=== PATIENT | male | born 1960 | race Caucasian/White ===

== ENCOUNTER 2025-03-24 03:29 | Inpatient (IN) | payer MEDICAID ==
[~2025-03-24] VITALS: Ht 172.7 cm; Wt 79.8 kg
[2025-03-24] VITALS (14 sets, daily range): BP systolic 124–147; BP diastolic 62–87; PULSE 62–87; RESP 13–20; TEMP 97.5–97.8; O2SAT 93–99
[2025-03-24] MEDS: HEPARIN DRIP INITAL BOLUS --- DO NOT GIVE/ORDER MC ONE (03:35)
--- NOTE | 2025-03-24 03:38 | ELECTROCARDIOGRAPH REPORT ---
[facility] Test Date: 2025-03-24 Test Time: 03:35:31 Pat Name: EVITA MUÑOZ Department: [facility]- Patient ID: [id number] Room: Gender: M Organ Recovery Coordinator: : 1960 Requested By: ISABELA DAVALOS Order Number: [id number] Reading MD: Dr. Isabela Davalos Measurements Intervals [place] Rate: 67 P: 53 SC: 141 QRS: 78 QRSD: 105 T: 69 QT: 430 QTc: 454 Interpretive Statements Sinus rhythm Repol abnrm suggests ischemia, diffuse leads Electronically Signed On 03-24-2025 4:19:[address] Isabela Davalos Please click the below link to view image of tracing.
--- NOTE | 2025-03-24 03:38 | Physician Documentation ---
History of Present Illness ~ Stated Complaint: XFER Time Seen by MD: 03:33 OK to notify your PCP?: Yes Source: patient, RN/MD, EMS, RN notes reviewed, EMS notes reviewed, old records Mode of Arrival: EMS Exam Limitations: no limitations HPI 64 year old male seen in bed 14 presents as a transfer via helicopter from [place] for complaints of of an NSTEMI. HPI from [place]: Jeffry Gan is a 64 year old male with a history of AAA, hypertension, hyperlipidemia, COPD, who presents to the ED for evaluation of the left sided abdominal pain. Patient has had pain off and on for the past week. He describes is as throbbing and pressure. He points to the upper left abdomen and lower left chest. He does occasionally feel some left arm heaviness. Today the pain is more intense and persistent and he is experienced significant amount of diaphoresis which is new for him. He denies associated headaches, shortness of breath, abdominal pain, nausea, vomiting, diarrhea, back or flank pain, peripheral edema. He denies history of cardiac problems. He is a current smoker of pack a day. XR CHEST AP PORTABLE: Impression: No acute abnormality identified. CT ABDOMEN PELVIS W IV CONTRAST: Impression: 1. No evidence of acute process in the abdomen/pelvis. 2. Mild increased size of abdominal aortic aneurysm, now 3.7 cm in diameter. Medication Reconciliation Allergies: Coded Allergies: No Known Allergies (Unverified , 03/24/25) Past Medical History Past Medical History: Coronary Artery Disease, COPD, Pneumonia Review of Systems All Other Systems at this time: Reviewed and Negative ROS As stated above in the HPI, otherwise all systems are reviewed and negative. Physical Exam Vital Signs: RN Vital Signs have been reviewed: Yes Pulse Oximetry Reflects: adequate oxygenation Physical Exam General: The patient is well developed, well nourished, nontoxic appearing and is in no acute distress. Skin: [employer], warm and dry with no rashes. HEENT: Head was normocephalic and atraumatic. Eyes - pupils equal, round, reactive to light and accommodation. Extraocular movements were intact. Conjunctivae were nonicteric. Ears - bilateral tympanic membranes were normal. The mouth and oropharynx were clear with moist mucous membranes. There were no pharyngeal exudates or erythema. Neck: Supple and nontender. There was no jugular venous distention, lymphadenopathy, thyromegaly or masses. Chest: Clear to auscultation bilaterally without wheezes, rales or rhonchi. No accessory muscle use. No dullness to percussion. Heart: Rate regular and rhythmic. S1, S2. No murmurs. Palpation of the chest wall was normal. No rubs or thrills. Abdomen: Soft, nontender and nondistended. Positive bowel sounds. No guarding or rebound. No hepatosplenomegaly or palpable masses. Extremities: No cyanosis, clubbing or edema. The patient moves all extremities. Pulses were equal and symmetric. Neurologic: Cranial nerves II-XII were intact. Sensation was intact to light touch throughout. Motor strength was 5/5 in all four extremities. Deep tendon reflexes were intact in both upper and lower extremities. Psychologic: The patient was oriented to person, place and time. The patient demonstrated appropriate judgement and insight. Progress Progress Note 0343: A message was left with the intesnsivist regarding admission. 0441: The heat treater was informed in the patients case and kindly agreed to the patients admission. Results/Orders Results/Orders Vital Signs 03/24/25 03/24/25 03/24/25 03/24/25 03:34 03:42 03:48 03:51 Temp 98.1 Pulse 69 66 Resp 15 16 18 B/P (MAP) 140/78 Pulse Ox 97 99 99 O2 Delivery Nasal Cannula* O2 Flow Rate 2.0 2 FiO2 28 Laboratory Tests Test 03/24/25 03:57 White Blood Count 7.3 Red Blood Count 4.14 L Hemoglobin 11.8 L Hematocrit 34.4 L Mean Corpuscular Volume 83.2 Mean Corpuscular Hemoglobin 28.5 Mean Corpuscular Hemoglobin Concent 34.3 Red Cell Distribution Width 14.5 Platelet Count 338 Mean Platelet Volume 7.9 Neutrophils (%) (Auto) 77.6 H Lymphocytes (%) (Auto) 9.3 L Monocytes (%) (Auto) 7.4 Eosinophils (%) (Auto) 5.1 Basophils (%) (Auto) 0.6 Neutrophils # (Auto) 5.7 Lymphocytes # (Auto) 0.7 L Monocytes # (Auto) 0.5 Eosinophils # (Auto) 0.4 Basophils # (Auto) 0.0 CBC Comment Coagulation Comments Sodium Level 132 L Potassium Level 3.9 Chloride Level 98 L Carbon Dioxide Level 28.2 Anion Gap 6 L Blood Urea Nitrogen 15 Creatinine 1.23 H Estimated GFR/1.73 m2 59 BUN/Creatinine Ratio 12.2 Glucose Level 166 H Calcium Level 8.7 Magnesium Level 2.0 Pro-B-Type Natriuretic Peptide 757 H Albumin 2.2 L Chemistry Comments EKG/XRAY/CT/US/VASC/MRI EKG : Additional Comment [facility] Test Date: 2025-03-24 Test Time: 03:35:31 Pat Name: JEFFRY GAN Department: [facility]- Patient ID: [facility]-[id number] Room: Gender: Cigar Head Puncher: : 1960 Requested By: DOMINGO DAVALOS Order Number: [id number] Reading MD: Dr. Domingo Davalos Measurements Intervals [place] Rate: 67 P: 53 VT: 141 QRS: 78 QRSD: 105 T: 69 QT: 430 QTc: 454 Interpretive Statements Sinus rhythm Repol abnrm suggests ischemia, diffuse leads Electronically Signed On 03-24-2025 4:19:[address] Domingo Davalos Please click the below link to view image of tracing. EKG Date and Time:03/24/25334 Electronically Signed by: DOMINGO DAVALOS MD Date and Time: 03/24/25418 Heart Score: Heart Score Response (Comments) Value History Highly Suspicious 2 EKG Repolarization Disturb 1 Age 45-64 1 Risk Factors 1 or 2 risk factors 1 Troponin >3 x's Normal limit 2 Total 7 Departure Disposition: ADMITTED INPATIENT Admitted to Inpatient Unit: yes, to hospitalist Impression: Primary Impression: NSTEMI (non-ST elevated myocardial infarction) Referrals: NO PRIMARY CARE PROVIDER (PCP) Critical Care Note Total Time (mins): 30 Critical Care Note The very real possibility of a deterioration of this patient's condition required the highest level of my preparedness for sudden, emergent intervention. I provided critical care services, which included medication orders, frequent reevaluations of the patient's condition and response to treatment, ordering and reviewing test results, and discussing the case with various consultants. Excludes time spent performing separately billable procedures. The critical care time associated with the care of the patient was 30 minutes. Signature Scribe Signature: Scribed for Domingo Davalos MD by Joleen Rosenbaum . 03/24/25 03:54 Attestation: The note accurately reflects work and decisions made by me.Domingo Davalos MD 03/24/25 03:37 DOMINGO DAVALOS MD Mar 24, 2025 03:38 JOLEEN MEHTA Mar 24, 2025 03:54
[2025-03-24 04:15] LABS: BASOPHILS % (AUTO) 0.6 % (0-1); EOSINOPHILS # (AUTO) 0.4 X10'3 (0-0.9); EOSINOPHILS % (AUTO) 5.1 % (0-6); HEMATOCRIT 34.4 % (42.0-52.0); HEMOGLOBIN 11.8 g/dl (14.0-17.9); LYMPHOCYTES # (AUTO) 0.7 X10'3 (1.1-4.8); LYMPHOCYTES % (AUTO) 9.3 % (21-51); MEAN CORPUSCULAR HEMOGLOBIN 28.5 PG (27.0-31.0); MEAN CORPUSCULAR HGB CONC 34.3 g/dL (33.0-36.5); MEAN CORPUSCULAR VOLUME 83.2 FL (78-98); MEAN PLATELET VOLUME 7.9 FL (7.4-10.4); MONOCYTES # (AUTO) 0.5 X10'3 (0-0.9); MONOCYTES % (AUTO) 7.4 % (2-12); NEUTROPHILS # (AUTO) 5.7 X10'3 (1.8-7.7); NEUTROPHILS % (AUTO) 77.6 % (42-75); PLATELET COUNT 338 X10'3 (140-440); RED BLOOD COUNT 4.14 X10'6 (4.70-6.10); RED CELL DISTRIBUTION WIDTH 14.5 % (11.5-14.5); WHITE BLOOD COUNT 7.3 X10'3 (4.5-11.0)
[2025-03-24 04:38] LABS: ALBUMIN 2.2 G/DL (3.4-5.0); ANION GAP 6 (8-16); BLOOD UREA NITROGEN 15 MG/DL (7-18); BUN/CREATININE RATIO 12.2 (10.0-20.0); CALCIUM 8.7 MG/DL (8.5-10.1); CHLORIDE 98 MMOL/L (99-107); CREATININE 1.23 MG/DL (0.60-1.10); GLUCOSE 166 MG/DL (70-104); POTASSIUM 3.9 MMOL/L (3.5-5.1); PRO BRAIN NATRIURETIC PEPTIDE 757 PG/ML (0-125); SODIUM 132 MMOL/L (135-145); TOTAL CARBON DIOXIDE 28.2 MMOL/L (24-32); eCRCL 59 ML/MIN; eGFR 59 ML/MIN
[2025-03-24 04:58] LABS: APTT 28 SECONDS (22-32); PROTHROMBIN TIME 10.4 SECONDS (9.0-12.0)
[2025-03-24] MEDS ORDERED: LOSA50TA64 PO (05:05)
[2025-03-24] MEDS ORDERED: heparin 10,000 units/1 ML INJ IV PRN (05:05)
[2025-03-24] MEDS ORDERED: ipratropium/albuterol 3ml nebule NEB PRN (05:10)
[2025-03-24] MEDS: heparin 25,000 UNIT/250ml bag 250 ML IV PRN (05:20)
[2025-03-24] MEDS: MESSAGE TO NURSING IV ONE (05:21)
--- NOTE | 2025-03-24 05:28 | HISTORY AND PHYSICAL ---
History of Present Illness End CC ~ History of Present Illness 64 year old male seen in bed 14 presents as a transfer via helicopter from [place] for complaints of of an NSTEMI. HPI from [place]: Jeffry Gan is a 64 year old male with a history of AAA, hypertension, hyperlipidemia, COPD, who presents to the ED for evaluation of the left sided abdominal pain. Patient has had pain off and on for the past week. He describes is as throbbing and pressure. He points to the upper left abdomen and lower left chest. He does occasionally feel some left arm heaviness. Today the pain is more intense and persistent and he is experienced significant amount of diaphoresis which is new for him. He denies associated headaches, shortness of breath, abdominal pain, nausea, vomiting, diarrhea, back or flank pain, peripheral edema. He denies history of cardiac problems. He is a current smoker of pack a day. Allergies: Coded Allergies: No Known Allergies (Unverified , 03/24/25) Home Medications Home Medications Active Reported Losartan Potassium 50 Mg Tablet 1 Tab PO DAILY Past Medical History Medical History Comment AAA, hypertension, hyperlipidemia, COPD, Tobacco Use Past Medical History: Coronary Artery Disease, COPD, Pneumonia Past Surgical History Surgical History Comment unknown Counseling Services Smoking & Tobacco Cessation: > 10 Minutes Advance Care Planning Advanced Care planning: N/A Review of Systems All Other Systems at this time: Reviewed and Negative Physical Exam Last Vital Signs recorded: Temperature: 98.1, Source: Oral, Heart Rate: 67, Respiratory Rate: 18, BP: 138/73, Pulse Oximetry: 100, Weight: 79.800 Results Diagram Lab Result Diagram: 03/24/25 0357 03/24/25 0357 Assessment/Plan Problems/Diagnosis: (1) NSTEMI (non-ST elevated myocardial infarction) Additional Plan NSTEMI Hypertension HLD AAA CKD Hyponatremia COPD Tobacco Use CKD Hyponatremia Recs -serial troponin -Heparin drip -Chest X-ray ordered, was negative at referring facility -CT Abdomen, stable AAA finding at [place] -ASA, Metoprolol, Statin -fluid restriction for low sodium, trend for now -unable to order lipid panel -Echo -Heparin drip will suffice for DVT prophylaxis Daytime team will consult cardiology Seen via HIPAA compliant audio visual platform Spent 35 minutes in care KARTIK BORJA MD Mar 24, 2025 05:28
--- NOTE | 2025-03-24 05:46 | RADIOLOGY REPORT ---
CHEST RADIOGRAPH Indication: chest pain Technique: Single frontal view of the chest was obtained COMPARISON: None FINDINGS: Lines and Tubes: None Lungs: Clear Pleura: No effusion. No pneumothorax. Cardiomediastinal contours: Unremarkable Bones: Unremarkable IMPRESSION: 1. No acute disease.
[2025-03-24] MEDS: PERFLUTREN PROTEIN-A MICROSPHR (Optison) 0.22 MG/ML 3ML VIAL IV ONE (06:14)
[2025-03-24] MEDS ORDERED: morphine 2 MG/ML inj. syringe IV PRN (08:05)
[2025-03-24] MEDS ORDERED: magnesium hydroxide 30ml (MOM) UD suspension PO PRN (08:05)
[2025-03-24] MEDS ORDERED: ondansetron/PF 4mg/2ml inj IV PRN (08:05)
[2025-03-24] MEDS ORDERED: magnesium sulf-water 4G/100mL 100 ML IV PRN (08:05)
[2025-03-24] MEDS ORDERED: magnesium sulf-water 2g/50mL 50 ML IV PRN (08:05)
[2025-03-24] MEDS ORDERED: HYDROcodone/acetaminophen 5mg/325mg tablet PO PRN (08:05)
[2025-03-24] MEDS ORDERED: ondansetron 4mg rapidly disintigrating tab PO PRN (08:05)
[2025-03-24] MEDS ORDERED: HYDROcodone/acetaminophen 10/325mg tab PO PRN (08:05)
[2025-03-24] MEDS ORDERED: mag hydrox/Alum hydrox/simeth 30ml oral suspension PO PRN (08:05)
[2025-03-24] MEDS ORDERED: acetaminophen 325mg tablet PO PRN ×2 (08:05)
[2025-03-24] MEDS ORDERED: potassium Cl 20 mEq SR tablet PO PRN ×2 (08:05)
[2025-03-24] MEDS ORDERED: nitroGLYCERIN 0.4mg SUBLingual tab SL PRN (08:05)
[2025-03-24] MEDS ORDERED: potassium Cl 40MEQ/1/2NS 520ml 520 ML IV PRN (08:05)
[2025-03-24 08:25] LABS: CHOL/HDL RATIO 4.8 (0.00-4.99); CHOLESTEROL 162 MG/DL (0-200); HDL CHOLESTEROL 34 MG/DL (35-60); LDL CHOLESTEROL 98 MG/DL (50-100); TRIGLYCERIDES 128 MG/DL (20-135)
[2025-03-24 08:39] LABS: BILIRUBIN,URINE NEGATIVE (Neg); CLARITY,URINE CLEAR (Clear); COLOR,URINE YELLOW (Yellow); GLUCOSE, URINE NEGATIVE (Neg); KETONES,URINE NEGATIVE (Neg); LEUKOCYTE ESTERASE ,URINE NEGATIVE (Neg); NITRITES, URINE NEGATIVE (Neg); OCCULT BLOOD,URINE LARGE (Neg); PROTEIN,URINE 30 mg/dl (Neg); UROBILINOGEN,URINE 0.2 E.U/dL (0.2-1.0)
[2025-03-24] MEDS: aspirin 81mg tab.chew PO SCH (08:39)
[2025-03-24] MEDS: metoprolol tartrate 12.5mg (1/2 tablet) PO SCH (08:39)
[2025-03-24] MEDS: normal saline 1000ml 1,000 ML IV SCH ×2 (08:40→15:49)
[2025-03-24 08:49] LABS: UA COLLECTION TYPE NON-SPECIFIED
[2025-03-24 08:52] LABS: BACTERIA,URINE FEW /HPF (Neg); COARSE GRANULAR CAST 0-3 /LPF (NEGATIVE); FINE GRANULAR CAST 0-3 /LPF (NEGATIVE); MUCUS STRANDS NONE SEEN /LPF (Neg); RBC,URINE 20-50 /HPF (0-2); SQUAMOUS EPITHELIAL CELL,UR FEW /LPF (FEW)
[2025-03-24 08:53] LABS: YEAST FEW /HPF (NEGATIVE)
[2025-03-24] MEDS ORDERED: verapamil 2.5 mg/ml inj IV ONE (09:36)
[2025-03-24] MEDS ORDERED: midazolam 1 mg/ML 2ml injection ONE (09:37)
[2025-03-24] MEDS ORDERED: iohexol 350MG/ML 100ml bottle IV ONE (09:37)
[2025-03-24] MEDS ORDERED: iohexol 350 MG/ML 50ML vial IV ONE (09:37)
[2025-03-24] MEDS ORDERED: heparin 1,000unit/ml 10ml vial 10 ML ONE (09:37)
[2025-03-24] MEDS ORDERED: fentaNYL/PF 50MCG/1 ML 2ML syringe ONE (09:37)
[2025-03-24] MEDS ORDERED: LIDOcaine 1% 30ml preserv. free vial ONE (09:37)
[2025-03-24] MEDS ORDERED: nitroGLYCERIN 500mcg/5mL D5W 10 ML IV ONE (09:38)
[2025-03-24] MEDS ORDERED: acetylcysteine 200 MG/ml 4ml vial PO ONE ×2 (10:05→20:00)
[2025-03-24] MEDS ORDERED: sodium bicarbonate 1meq/ml inj 150 ML in sodium chloride 0.45% 1,000 ML IV SCH (10:05)
[2025-03-24] MEDS: morphine 2 MG/ML inj. syringe IV PRN (11:09)
[2025-03-24] MEDS: acetylcysteine 200 MG/ml 4ml vial PO ONE (11:10)
--- NOTE | 2025-03-24 12:03 | PROGRESS NOTE ---
Daily Progress Note Providers to CC ~ Antibiotic Timeout Antibiotic Ordered?: No Subjective No acute events overnight. Patient examined at bedside. No new complaints, not in acute distress. Patient denies sob, palpitations, abdominal pain, n/v/d. Patient reports persistent chest pain. Vss, labs notable for uptrending troponin series from 1000 to 2300. Consulted telephone sterilizer Dr. Watts, optical laboratory mechanic today. Objective Vital Signs Date Time Temp Pulse Resp B/P (MAP) Pulse Ox O2 Delivery O2 Flow Rate FiO2 03/24/25 11:11 97.8 64 13 147/87 (107) 97 03/24/25 09:14 2.0 03/24/25 06:49 28 03/24/25 05:38 Nasal Cannula* Result Diagram: 03/24/2535603/24/25356 Physical Exam General: Generalized weakness, A&Ox 3, NAD HEENT: Normocephalic, PERRLA Neck: Supple, trachea midline, no JVD Chest: Clear to auscultation bilaterally Cardiovascular: RRR, S1&S2 GI: Soft and nontender Extremities: No cyanosis/clubbing/or edema HOT KNIFE FOXING CUTTER: CN II-XII intact, no focal deficits Musculoskeletal: No paraspinal muscle tenderness, no muscle spasm Skin: Warm and intact Coagulation Studies Laboratory Tests Test 03/24/25 03:57 03/24/25 11:21 Prothrombin Time 10.4 SECONDS (9.0-12.0) INR International Normalized Ratio 1.0 INR Activated Partial Thromboplast Time 28 SECONDS (22-32) APTT (Heparin Protocol) 37 SECONDS (45-60) L Coagulation Comments Problem\Assessment\Plan Assessment NSTEMI Hypertension HLD AAA CKD Hyponatremia COPD Tobacco Use CKD Hyponatremia -serial troponins uptrending from 1000 to 2300, pBNP 757, CXR negative, CT abdomen stable AAA findings at [place], LDL 98, TGL 128 -on heparin drip metoprolol statin aspirin Plan -consulted telephone sterilizer Dr. Watts, optical laboratory mechanic today -follow TTE Code Status: Full Code Date of Service: Mar 24, 2025 Billing Provider: TYLER VIVAR Common Visit Codes: [id number] INP/OBS CARE(HIGH) TYLER VIVAR Mar 24, 2025 12:03
[2025-03-24] MEDS: K and/or MAG REPLACEMENT MC SCH (19:27)
[2025-03-24] MEDS: docusate sod 100mg capsule PO SCH (20:00)
[2025-03-25] VITALS (9 sets, daily range): BP systolic 118–158; BP diastolic 52–81; PULSE 61–79; RESP 14–18; TEMP 97.3–99.5; O2SAT 96–98
[2025-03-25 06:57] LABS: BASOPHILS % (AUTO) 0.6 % (0-1); EOSINOPHILS # (AUTO) 0.4 X10'3 (0-0.9); EOSINOPHILS % (AUTO) 5.4 % (0-6); HEMATOCRIT 33.7 % (42.0-52.0); HEMOGLOBIN 11.2 g/dl (14.0-17.9); LYMPHOCYTES # (AUTO) 0.7 X10'3 (1.1-4.8); LYMPHOCYTES % (AUTO) 9.7 % (21-51); MEAN CORPUSCULAR HEMOGLOBIN 27.8 PG (27.0-31.0); MEAN CORPUSCULAR HGB CONC 33.3 g/dL (33.0-36.5); MEAN CORPUSCULAR VOLUME 83.5 FL (78-98); MEAN PLATELET VOLUME 8.1 FL (7.4-10.4); MONOCYTES # (AUTO) 0.5 X10'3 (0-0.9); MONOCYTES % (AUTO) 7.3 % (2-12); NEUTROPHILS # (AUTO) 5.7 X10'3 (1.8-7.7); PLATELET COUNT 372 X10'3 (140-440); RED BLOOD COUNT 4.03 X10'6 (4.70-6.10); RED CELL DISTRIBUTION WIDTH 14.9 % (11.5-14.5); WHITE BLOOD COUNT 7.4 X10'3 (4.5-11.0)
[2025-03-25 07:24] LABS: ALANINE AMINOTRANSFERASE 19 U/L (12-78); ALBUMIN/GLOBULIN RATIO 0.5 (1.1-1.5); ALKALINE PHOSPHATASE 86 IU/L (46-116); ANION GAP 9 (8-16); ASPARTATE AMINO TRANSFERASE 23 U/L (10-37); BILIRUBIN,TOTAL 0.4 MG/DL (0.1-1.0); BLOOD UREA NITROGEN 11 MG/DL (7-18); BUN/CREATININE RATIO 11.6 (10.0-20.0); CALCIUM 8.4 MG/DL (8.5-10.1); CHLORIDE 99 MMOL/L (99-107); CREATININE 0.95 MG/DL (0.60-1.10); GLUCOSE 113 MG/DL (70-104); POTASSIUM 4.1 MMOL/L (3.5-5.1); SODIUM 134 MMOL/L (135-145); TOTAL CARBON DIOXIDE 26.1 MMOL/L (24-32); TOTAL PROTEIN 6.4 G/DL (6.4-8.2); eCRCL 77 ML/MIN; eGFR 80 ML/MIN
[2025-03-25] MEDS: atorvastatin 20mg tablet PO SCH (07:48)
[2025-03-25] MEDS ORDERED: ATOR20TA66 PO (11:37)
[2025-03-25] MEDS ORDERED: ASPI81TA53 PO (11:37)
[2025-03-25] MEDS ORDERED: PANT40TA54 PO (11:37)
[2025-03-25] MEDS: clopidogrel 75mg tablet PO ONE (12:39)
--- NOTE | 2025-03-25 15:01 | DISCHARGE SUMMARY ---
Discharge Summary Providers to CC ~ Discharge Summary Admission Diagnosis: NSTEMI Hospital Course DATE OF ADMISSION: 03/24/25 DATE OF DISCHARGE: 03/25/25 Discharge Diagnosis\\Comment: NSTEMI Hypertension HLD AAA CKD Hyponatremia, mild COPD Tobacco Use CKD Hyponatremia Operations\\Procedures: Cardiac angiogram (03/24/25) Consultants: Quality Assurance Practice Manager Dr. Watts, ALONZO Complications: None Condition on DC: Stable New Medications: Nitroglycerin SL* (Nitrostat SL*) 0.4 Mg Tablet 1 TAB SL Q5MIN PRN for Chest pain Q5min PRNx3-call MD, #25 TAB Pantoprazole Sodium (Pantoprazole Sodium) 40 Mg Tablet.dr 40 MG PO DAILY for 30 Days, #30 TAB.SR Aspirin (Children's Aspirin) 81 Mg Tab.chew 81 MG PO DAILY for 90 Days, #90 TAB.CHEW Atorvastatin Calcium (Atorvastatin Calcium) 20 Mg Tablet 40 MG PO HS for 90 Days, #90 TAB Continued Medications: Losartan Potassium (Losartan Potassium) 50 Mg Tablet 1 TAB PO DAILY Discharge Summary: History of Present Illness From [facility]: "Jeffry Gan is a 64 year old male seen in bed 14 presents as a transfer via helicopter from [place] for complaints of of an NSTEMI. HPI from [place]: Jeffry Gan is a 64-year old male with a history of AAA, hypertension, hyperlipidemia, COPD, who presents to the ED for evaluation of the left sided abdominal pain. Patient has had pain off and on for the past week. He describes is as throbbing and pressure. He points to the upper left abdomen and lower left chest. He does occasionally feel some left arm heaviness. Today the pain is more intense and persistent and he is experienced significant amount of diaphoresis which is new for him. He denies associated headaches, shortness of breath, abdominal pain, nausea, vomiting, diarrhea, back or flank pain, peripheral edema. He denies history of cardiac problems. He is a current smoker of pack a day." Hospital Course Diagnostic findings were significant for uptrending troponin series from 1000s to 2000s ng/L. Pertinent negative findings were unremarkable NT-proBNP, negative chest x-ray, CT abdomen revealing stable AAA findings at the transferring facility, LDL 98, triglyceride 128. TTE revealed akinetic appearing apical anterior, hypokinetic appearing mid and basal inferoseptum, LVEF of 55%, RVSP 29 mmHg, without significant valvular heart disease. Patient was started on heparin drip at the transferring facility and was continued on heparin drip and started on aspirin, statin, metoprolol, prn nitroglycerin at [facility]. Case was consulted with on-call chassis mechanic Dr. Watts. Patient underwent cardiac angiogram on 03/24/25 without indication for stent placement and recommendation for continued medical management. Patient did not experience further complications throughout the entire hospital stay. Patient was seen and examined on the day of discharge. On day of discharge, vss and labs unremarkable. All labs, diagnostic workups, discharge plan discussed with patient in details during visit before discharge. All questions and concerns answered to the best of my professional knowledge. Patient ambulated independently without requiring assistance. Patient is cleared for discharge from cardiology standpoint. Patient is to be discharged to home to self and to follow up with PCP and chassis mechanic Dr. Watts within 2 weeks. Physical Exam General: A&Ox 3, NAD HEENT: Normocephalic, PERRLA Neck: Supple, trachea midline, no JVD Chest: Clear to auscultation bilaterally Cardiovascular: RRR, S1&S2 GI: Soft and nontender Extremities: No cyanosis/clubbing/or edema NUTRITION INTERN: CN II-XII intact, no focal deficits Musculoskeletal: No paraspinal muscle tenderness, no muscle spasm Skin: Warm and intact *Problems/Diagnosis: (1) NSTEMI (non-ST elevated myocardial infarction) Status: Acute Total Time Spent on D/C: > 30 Minutes Date of Service: Mar 25, 2025 Billing Provider: TYLER VIVAR Common Visit Codes: 01231-OOV/OBS DISCH DAY >30min TYLER VIVAR Mar 25, 2025 15:01
[2025-03-25] MEDS ORDERED: NITR0.4T51 SL (15:13)
--- NOTE | 2025-03-25 19:18 | CARDIOLOGY REPORT ---
APPROVED REPORT EXAM: Comprehensive 2D, Doppler, and color-flow Echocardiogram. Patient Location: 3014 A Blood Pressure: 137/66 mmHg Heart Rate: 68 bpm Rhythm: Sinus Rhythm Indications NSTEMI Hx of AAA Hypertension COPD HDL Employment And Claims Aide: MA. Luis Alberto MD / MD Telma Previous echo: None 2D Dimensions RVDd 4.2 cm LA Diam4.2 cm RA Minor4.2 cmLVOT Diameter 2.18 (1.8-2.4cm) IVC 19.26 mmCO 4.6 L/min M-Mode Dimensions RVDd 3.58 (2.1-3.2cm) Left Atrium(MM) 3.50 (2.5-4.0cm) IVSd 1.21 (0.7-1.1cm) LVDd 5.17 (4.0-5.6cm) Aortic Root 3.42 (2.2-3.7cm) PWd 1.24 (0.7-1.1cm) Aortic Cusp Exc 2.18 (1.5-2.0cm) IVSs 1.67 cm MV EPSS 0.7 (<0.5cm) LVDs 3.39 (2.0-3.8cm) FS (%) 31 % PWs 1.63 cm ESV(Teich) 47.0 ml LVEF(%) 59 (>50%) Aortic Valve AoV Peak Otoniel. 156.1 cm/s AoV VTI 28.5 cm AO Peak GR. 9.7 mmHg AO Mean GR. 5 mmHg LVOT VTI 22.53 cm LVOT Peak Otoniel. 116.0 cm/s TOBIAS(VTI)/BSA 2.95 cm2/m2 TOBIAS (VTI) 2.95 cm2 Mitral Valve MV E Velocity 66.0 cm/s MV Peak Gr. 4 mmHg MV DECEL TIME 184 ms MV A Velocity 74.4 cm/s MV Mean Gr. 1 mmHg MV PHT 56 ms E/A Ratio 0.9 MVA (PHT) 3.93 cm2 MV VMax97.6 cm/sMV VMean46.1 cm/s MVA VTI3.40 cm2MV VTI24.7 cm TDI Medial E' P. V 11.25 cm/s E/Medial E' 5.9 Tricuspid Valve TR P. Velocity 217 cm/s RAP ESTIMATE 10 mmHg TR Peak Gr. 19 mmHg RVSP 29 mmHg Pulmonary Vein S1 Velocity 45.7 cm/s D2 Velocity 52.9 cm/s PVa Uujyuhgm62.8 cm/s PVa Flurcyqy419 msec LEFT VENTRICLE Normal LV size and function. . Mild concentric hypertrophy. Overall LVEF is around 60% RIGHT VENTRICLE Right ventricle is moderate to severely dilated with mildly reduced function. Estimated PA systolic p ressure is 29 mmHg. ATRIA Left atrium is mildly dilated. AORTIC VALVE Trileaflet AV appears sclerotic without stenosis or insufficiency. MITRAL VALVE Mild MV annular calcification without stenosis. Trace regurgitation. TRICUSPID VALVE TV appears structurally normal with trace regurgitation. PULMONIC VALVE Grossly normal PV without stenosis, physiologic insufficiency. GREAT VESSELS The aortic root is normal in size. IVC is normal in size and collapses less than 50% with inspiration . PERICARDIUM Normal pericardium. No pericardial effusion seen. Other Information Study Quality: Fair Conclusion Overall LVEF is around 60% Normal LV size and function. . Mild concentric hypertrophy. Right ventricle is moderate to severely dilated with mildly reduced function. Estimated PA systolic p ressure is 29 mmHg. Trileaflet AV appears sclerotic without stenosis or insufficiency. Mild MV annular calcification without stenosis. Trace regurgitation. TV appears structurally normal with trace regurgitation. Grossly normal PV without stenosis, physiologic insufficiency. Normal pericardium. No pericardial effusion seen.
[2025-03-26] MEDS ORDERED: clopidogrel 75mg tablet PO SCH (08:00)
--- NOTE | 2025-03-26 13:20 | CONSULTATION ---
DATE OF CONSULTATION: 03/24/2025 DICTATING PHYSICIAN: ALONZO Watts MD CARDIOLOGY CONSULTATION PRIMARY PHYSICIAN: Garrison Lovell at [facility]. CARDIOLOGY: ALONZO Watts MD IDENTIFICATION: The patient is a 64-year-old male with COPD, continuous smoking, AAA, hypertension, hyperlipidemia, COPD, who presented to [facility] with substernal chest discomfort and found to have elevated troponin, subsequently transferred here. His troponin was 1053 and has gone up to 1902. The patient continues to have persistent substernal chest discomfort. HISTORY OF PRESENT ILLNESS: The patient is a poor historian. He does not have a regular followup and continues to smoke. He says he has hypertension, hyperlipidemia, prediabetes as well and history of prostate cancer. The patient states that he has been having edema for the last 2 years, on and off chest pain for the last 1 week. He thought it was related to upset stomach and did not seek any help and finally went to the emergency room and evaluated and sent here. The patient states the pain has been kind of lasted for a few hours, substernal chest discomfort, shortness of breath, and perspiration. No prior history of myocardial infarction or congestive heart failure. The patient states he does not exercise regularly because of his DJD and right foot drop and NYHA dyspnea class 2-3. No history of stent, palpitations, syncope. No history of congenital rheumatic heart disease. PAST MEDICAL HISTORY: * Hypertension. * Hyperlipidemia. * Prediabetes. * COPD with continued smoking. * DJD with right foot drop. * AAA. * History of prostate cancer diagnosed three years ago and was treated by urologist Dr. Hutson, took radiation therapy for 9 months. No history of metastasis. PAST SURGICAL HISTORY: Noncontributry. 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 HABITS: The patient has been smoking 1 pack per day. Recently has dropped down to a half pack per day and has quit 2 weeks ago. No alcohol abuse. HOME MEDICATIONS: Losartan, potassium 50 mg p.o. daily. REVIEW OF SYSTEMS: HEENT: The patient wears reading glasses. No hearing impairment. RESPIRATORY: Has exertional shunt. MUSCULOSKELETAL: DJD. CENTRAL NERVOUS SYSTEM: No stroke, TIA. PSYCHIATRIC: No anxiety. SKIN: None. ENDOCRINE: None. PHYSICAL EXAMINATION: GENERAL: The patient is conscious, alert, and oriented. He is in the emergency room, bed 14. Still having some mild substernal chest discomfort. VITAL SIGNS: Temperature 98.1, pulse 70, blood pressure 150/80. NECK: No JVD. Carotids are equally well felt. CARDIAC: Regular rate and rhythm. S1, S2 are normal. No S3, S4, or murmur. LUNGS: Lungs are clear to auscultation bilaterally. ABDOMEN: Soft, nontender, and nondistended. EXTREMITIES: No cyanosis or clubbing. CENTRAL NERVOUS SYSTEM: No lateralizing signs. LABORATORY DATA: Sodium 132, potassium 3.9, chloride 98, carbon dioxide 28, BUN 15, creatinine 1.23, troponin 1053, 1902. WBC 7.3, hemoglobin 11.8, hematocrit 34.4, platelet count 338. DIAGNOSTIC DATA: EKG: Normal sinus rhythm. Chest x-ray showed no acute changes and the patient's CT abdomen and pelvis with no evidence of acute process. AAA size was 3.7 cm. IMPRESSION AND PLAN: 1. A 64-year-old male with hypertension, hyperlipidemia, and prediabetes with chest pain, non-ST elevation TN, on IV heparin and aspirin. Recommend cardiac catheterization. Risks, benefits, alternative options discussed with the patient. The patient agrees with the arrangement. 2. Hypertension, hyperlipidemia, and prediabetes. Extensively counseled on coronary risk factor modification to keep LDL less than 55 mg%, hemoglobin less than 7%, systolic blood pressure less than 130 mmHg. 3. Other comorbidity of COPD. He quit smoking 2 weeks ago. Recommend continued cessation. 4. History of prostate cancer in remission and DJD with right foot drop. ALONZO Watts MD TID: [id number] RECEIPT: [id number] DAMI/MICAH/BATSHEVA cc: Garrison Lovell
--- NOTE | 2025-03-26 13:47 | CARDIOLOGY REPORT ---
DATE OF SERVICE: 03/24/2025 DICTATING PHYSICIAN: ALONZO Watts MD CARDIAC CATHETERIZATION GENDER: Male AGE: 64 HEIGHT: 173 cm WEIGHT: 79.8 kg BODY SURFACE AREA: 1.92 m2 PRIMARY PHYSICIAN: Garrison Lovell in [facility] [place] BURR FILER: ALONZO Watts MD INDICATION: The patient is a 64-year-old male with a history of hypertension, hyperlipidemia, prediabetes, COPD, continued tobacco abuse, and AAA. The patient has been having chest pain and shortness of breath. His troponin was elevated. Troponin went up to 2318. After discussing risks, benefits, and alternative options, the patient prefers to proceed with definitive coronary angiography. Risks, benefits, and alternative options were discussed, and informed consent obtained. PROCEDURE TECHNIQUE: The patient underwent left heart catheterization from right radial approach, 6-[place] radial sheath. Post-procedure access site hemostasis secured with radial band. The patient tolerated the procedure well. COMPLICATIONS: None. PROCEDURES DONE: * Ultrasound-guided right radial artery visualization and access. * Left heart catheterization. * LVG. * Coronary cineangiography. * Conscious sedation 30 minutes. FINDINGS: HEMODYNAMICS: Aortic systolic 138, diastolic 63, mean 92 mmHg. LVEDP of 15 mmHg. There was no gradient across the aortic valve. LVG: Overall, left ventricular systolic function normal with LVEF of 65-70%. CORONARY CINEANGIOGRAPHY: Left main coronary artery is a large-caliber vessel arising from the left aortic sinus engaged with JL4 catheter from the right radial approach. LAD is a medium caliber vessel arising at the bifurcation of the left main and courses through the anterior interventricular groove, ends by wrapping around the apex. LAD has mild luminal irregularities. Diagonal 1 is a 1.75 mm caliber with minimal luminal irregularities. Diagonal 2 is 3.5 mm with mild luminal irregularities. Circumflex artery is a medium-caliber vessel arising at the bifurcation of main coronary artery, courses through the left AV groove and predominantly continuing the principal obtuse marginal branch, which was about 3.5 mm in diameter, diverts into 3 divisions. OM 2 and 3 are very small vessels. Right coronary artery is a medium-caliber dominant vessel arising at right aortic sinus, courses through the AV groove and ends at the posterior crux by dividing into the PDA and a posterolateral branch. Proximal mid RCA has 30% narrowing. IMPRESSION: A 64-year-old male with left ventricular ejection fraction of 65-70%. LVEDP of 14 mmHg with no significant gradient across the aortic valve. Left main normal. LAD diagonal with minimal luminal irregularities ____ proximal to mid 30% narrowing. RECOMMENDATIONS: Recommend continued aggressive coronary risk factor modification, namely low-fat, low-cholesterol diet. Maintaining ideal body weight, keeping LDL less than 70 mg, regular exercise program. BV MD Mac TID: [id number] RECEIPT: [id number] DAMI/BATSHEVA cc: Garrison Lovell [facility]
== END 2025-03-25 15:13 | disposition home or self-care (01) | DRG 190 ==
LOC: ER 03:30 → ED HOLD 08:07 → PCU 3S 10:45
PROVIDERS: ADMIT Nurse Practitioner Family; ATTEND Nurse Practitioner Family
PROC: 4A023N7 Measurement of Cardiac Sampling and Pressure, Left Heart, Percutaneous Approach (ICD-10-PCS; principal; 2025-03-24)
PROC: B2111ZZ Fluoroscopy of Multiple Coronary Arteries using Low Osmolar Contrast (ICD-10-PCS; 2025-03-24)
DX: I21.4 Non-ST elevation (NSTEMI) myocardial infarction (principal); E87.1 Hypo-osmolality and hyponatremia; F17.210 Nicotine dependence, cigarettes, uncomplicated; I12.9 Hypertensive chronic kidney disease with stage 1 through stage 4 chronic kidney disease, or unspecified chronic kidney disease; I25.10 Atherosclerotic heart disease of native coronary artery without angina pectoris; E78.5 Hyperlipidemia, unspecified; J44.9 Chronic obstructive pulmonary disease, unspecified; N18.9 Chronic kidney disease, unspecified; R73.03 Prediabetes; Z79.899 Other long term (current) drug therapy; Z79.82 Long term (current) use of aspirin; Z85.46 Personal history of malignant neoplasm of prostate; Z86.79 Personal history of other diseases of the circulatory system
CPT/HCPCS: 36415; 71045; 76937; 80048; 80053; 80061; 81001; 83735; 83880; 84484; 85025; 85347; 85610; 85730; 87081; 87088; 93005; 93306; 93458; 94760; 99152; 99153; A6258; C1725; C1894; G0378; J1644; J2003; J2250; J2270; J3010; J3490; J7030; Q9967